=== PATIENT | female | born 1965 | race Caucasian/White ===

== ENCOUNTER 2022-02-11 10:30 | Outpatient (RCR) | payer OTHER, SELFPAY | END 2022-03-30 09:31 | disposition home or self-care (01) | PROVIDERS: Visit Provider Family Medicine | DX: M54.50 Low back pain, unspecified (principal) | CPT/HCPCS: 97110; 97140 ==

== ENCOUNTER 2022-02-28 19:50 | Outpatient (CLI) | payer OTHER, SELFPAY ==
--- NOTE | 2022-03-08 12:26 | P.SLS_ITS ---
Sleep Study Details Details Interpreting Provider: Davide Rocha MD Date of Sleep Study: 02/28/22 Sleep Study Details: STUDY TYPE:? Home ? BMI:? 37.1 ORDERING PROVIDER:? Otis INDICATION:? Concerns about sleep apnea ? SLEEP SUMMARY:? Monitor time 462.9 minutes RESPIRATORY SUMMARY:? AHI 78.8. Minimal positional variation with the exception of the left lateral position AHI was 33.8. Low oxygen 69% 43.8% of the study oxygen level was less than 90%, 19.7% of study less than 85%, and 5.9% of study less than 80%. Snore summary 813.3 PERIODIC LIMB MOVEMENTS OF SLEEP:? Not recorded CARDIAC:? Range 07/03/2041, mean 57.3 beats per minute IMPRESSION:? Severe obstructive sleep apnea with an AHI of 78.8. Somewhat improved but still severe in the left lateral position. All other positions we re similar. Severe hypoxemia noted during study RECOMMENDATION: Would recommend an in-lab titration for this patient to the significant hypoxemia noted and the severity of the sleep apnea.
== END 2022-02-28 19:51 | disposition home or self-care (01) ==
PROVIDERS: Visit Provider Physician Assistant Medical
DX: G47.33 Obstructive sleep apnea (adult) (pediatric) (principal)
CPT/HCPCS: 95806

== ENCOUNTER 2022-03-21 09:07 | Emergency (ER) | payer OTHER, SELFPAY ==
[2022-03-21] VITALS (12 sets, daily range): BP systolic 150–164; BP diastolic 82–107; PULSE 55–71; RESP 16–20; TEMP 35.7; O2SAT 96–98; BMI 37.1
--- NOTE | 2022-03-21 10:08 | ED.CHESTPAIN ---
HPI - Chest Pain General Chief Complaint: Chest Pain Stated Complaint: chest pain Time Seen by Provider: 03/21/22 09:50 History of Present Illness HPI narrative: This 56-year-old female comes in reporting intermittent chest discomfort over the past couple days. She states that she feels that in the center of her chest and sometimes radiating into her left anterior chest. The pain comes and goes and sometimes is rather brief lasting for seconds or few minutes and other times occurs for 10-20 minutes. She states that this is not an exertional pain. She does not have any prior pain with when exerting herself. She does not report any shortness of breath, lightheadedness, nausea, vomiting, or diaphoresis. She does not have any prior cardiac history. She does not have any cardiac risk factors except that she quit smoking about 3 years ago. Related Data Previous Rx's Medication Instructions Recorded ketorolac 10 mg tablet 10 mg PO Q8H 5 days #15 tabs 03/21/22 Allergies Allergy/AdvReac Type Severity Reaction Status Date / Time No Known Drug Allergies Allergy Verified 03/21/22 09:16 Review of Systems Status of ROS Reports: 10 or more systems reviewed and unremarkable except as noted in History and below Narrative Constitutional: No fevers, no weight gain or loss. Eyes: No discharge. No vision changes. HENT: No congestion, no sore throat, no ear pain. Cardiovascular: No palpitations. Chest discomfort as described above. Respiratory: No shortness of breath, no wheezes, no cough. Gastrointestinal: No abdominal pain, no vomiting, no diarrhea. Genitourinary: No dysuria, no hematuria. Musculoskeletal: Normal range of motion. Skin: No rashes, no pruritis. Neurological: No dizziness, weakness, sensory change, speech change. Endo/Heme/Allergies: No bruising or bleeding. No polydipsia. Pysch: no suicidality, no anxiety, no insomnia. All other systems reviewed and are negative. PFSH PFSH Social History Smoking Status: Former smoker Do you use any of these nicotine containing products: Vaping Products Second hand tobacco smoke exposure: No How often do you have a drink containing alcohol: 2-4 times a month How many standard drinks containing alcohol do you have on a typical day: 1 or 2 How often do you have six or more drinks on one occasion: Never AUDIT-C Alcohol total score: 2 Non-prescribed substance use: denies use service: No Exam Narrative Exam Narrative: Constitutional: Well-developed, well-nourished, no acute distress. HEENT: Normocephalic, atraumatic. Neck: Normal range of motion. Nontender. Supple. Heart: Regular. No murmurs. Normal rate. Intact distal pulses. Lungs: Clear to auscultation. No wheezes, rhonchi, or rales. Chest discomfort is distinctly reproducible when palpating on her lower sternum. Abdomen: Normal bowel sounds. Nontender. No rebound tenderness. Genitalia: Deferred. Back: No midline tenderness. Normal range of motion. Extremities: Normal range of motion. No injury. Skin: Intact. No rash. Warm. No erythema or pallor. Neurologic: No altered sensation. No weakness. Alert and oriented. Psychiatric: No suicidality. No anxiety or depression. No insomnia. Nursing notes and vitals signs are reviewed. Const Vital Signs, click to edit/add: Vital Signs - 24 hr 03/21/22 09:17 03/21/22 09:30 03/21/22 09:55 Temperature 96.3 F L Pulse Rate 68 Pulse Rate [Apical] 71 64 Respiratory Rate 20 16 Blood Pressure Blood Pressure [Left Upper Arm] 157/107 H 164/89 H Pulse Oximetry 97 98 96 Oxygen Delivery Method Room Air Room Air 03/21/22 10:00 03/21/22 10:02 03/21/22 10:04 Temperature Pulse Rate 66 64 69 Pulse Rate [Apical] Respiratory Rate Blood Pressure 150/102 H Blood Pressure [Left Upper Arm] Pulse Oximetry 97 97 97 Oxygen Delivery Method 03/21/22 10:30 03/21/22 10:32 03/21/22 10:33 Temperature Pulse Rate 70 68 65 Pulse Rate [Apical] Respiratory Rate Blood Pressure 152/82 H Blood Pressure [Left Upper Arm] Pulse Oximetry 96 97 96 Oxygen Delivery Method 03/21/22 11:00 03/21/22 11:01 Temperature Pulse Rate 55 L 62 Pulse Rate [Apical] Respiratory Rate Blood Pressure 162/82 H Blood Pressure [Left Upper Arm] Pulse Oximetry 96 98 Oxygen Delivery Method Course Vital Signs Vital signs: Initial Vital Signs Temperature 96.3 F L 03/21/22 09:17 Temperature Source Temporal Artery Scan 03/21/22 09:17 Pulse Rate 71 03/21/22 09:17 Pulse Rhythm 03/21/22 09:17 Respiratory Rate 20 03/21/22 09:17 Blood Pressure 157/107 H 03/21/22 09:17 Blood Pressure Mean 123 03/21/22 09:17 Pulse Oximetry 97 03/21/22 09:17 Oxygen Delivery Method 03/21/22 09:17 Vital Signs Temperature 96.3 F L 03/21/22 09:17 Pulse Rate 71 03/21/22 09:17 Respiratory Rate 20 03/21/22 09:17 Blood Pressure 157/107 H 03/21/22 09:17 Pulse Oximetry 97 03/21/22 09:17 Oxygen Delivery Method 03/21/22 09:17 Temperature 96.3 F L 03/21/22 09:17 Pulse Rate 62 03/21/22 11:01 Respiratory Rate 16 03/21/22 09:30 Blood Pressure 162/82 H 03/21/22 11:01 Pulse Oximetry 98 03/21/22 11:01 Oxygen Delivery Method 03/21/22 09:30 MDM - Chest Pain MDM Narrative Medical decision making narrative: This patient arrives with a couple days of intermittent chest discomfort in her sternum area and sometimes radiating off the left side. This pain is distinctly reproducible when palpating over the lower portion of her sternum. Additionally her EKG and lab results returned with normal findings. Her symptoms are much more likely related to a chest wall pain or costal chondritis. She did receive a rib belt and a prescription for Toradol. She is okay to return home and resume activity as tolerated. Lab Data Labs: Lab Results 03/21/22 03/21/22 03/21/22 Range/Units 10:08 10:21 10:21 WBC 6.53 (4.50-11.00) K/uL RBC 4.46 (4.00-5.20) m/uL Hgb 13.1 (12.0-16.0) gm/dL Hct 40.2 (33.0-51.0) % MCV 90 (80-100) fL MCH 29 (26-34) pg MCHC 33 (32-36) gm/dL RDW Coeff of Gianni 12.5 (11.5-15.5) % Plt Count 279 (140-440) K/uL Neut % (Auto) 58.4 (42.0-72.0) % Lymph % (Auto) 32.2 (20-44) % [place] % (Auto) 6.3 (0.0-11.0) % Eos % (Auto) 2.0 (0.0-7.0) % Baso % (Auto) 0.8 (0.0-3.0) % Neut # (Auto) 3.82 (1.7-7.0) K/uL Lymph # (Auto) 2.10 (0.90-2.90) K/uL [place] # (Auto) 0.40 (0.00-0.90) K/UL Eos # (Auto) 0.13 (0.00-0.50) K/uL Baso # (Auto) 0.05 (0.00-0.30) K/uL Abs Immat Gran (auto) 0.02 (0.00-0.30) K/uL Sodium 140 (135-149) mmol/L Potassium 3.8 (3.6-5.1) mmol/L Chloride 103 (96-114) mmol/L Carbon Dioxide 27 (20-32) mmol/L BUN 14 (7-30) mg/dL Creatinine 0.7 (0.5-1.5) mg/dL Estimated Creat Clear 84.01 Estimated GFR 101 ml/min Glucose 100 (60-115) mg/dL Calcium 8.8 (8.4-10.6) mg/dL POC Troponin I 0.01 (0.01-0.04) ng/ml ECG Data Attestation: I personally reviewed and interpreted this ECG as follows: Interpretation: Normal sinus rhythm. Rate is 68 beats per minute. There are no specific ST or T-wave abnormalities. Discharge Plan Discharge Clinical Impression: Chest wall pain Patient Disposition: Home, Self-Care Condition: Stable Instructions: Chest Wall Pain (ED) Additional Instructions: Use rib belt and medications as needed and indicated. Follow up with MD or return if worsening. Prescriptions: New ketorolac 10 mg tablet 10 mg PO Q8H 5 Days Qty: 15 0RF Follow Up/Referrals: Provider,Not a Local [Primary Care Provider] - Stand Alone Forms: DeRev Info Instructions
[2022-03-21 10:36] LABS: Troponin, Point-of-Care* 0.01 ng/ml (0.01-0.04)
[2022-03-21 10:36] LABS: Basophils Absolute Auto 0.05 K/uL (0.00-0.30); Basophils Percent Auto 0.8 % (0.0-3.0); Eosinophils Absolute Auto 0.13 K/uL (0.00-0.50); Hematocrit 40.2 % (33.0-51.0); Hemoglobin* 13.1 gm/dL (12.0-16.0); Immature Granulocytes Abs Auto 0.02 K/uL (0.00-0.30); Lymphocytes Percent Auto 32.2 % (20-44); Mean Corpuscular HGB Conc 33 gm/dL (32-36); Mean Corpuscular Hemoglobin 29 pg (26-34); Mean Corpuscular Volume 90 fL (80-100); Monocytes Percent Auto 6.3 % (0.0-11.0); Neutrophils Absolute Auto 3.82 K/uL (1.7-7.0); Neutrophils Percent Auto 58.4 % (42.0-72.0); Platelet Count* 279 K/uL (140-440); RDW Coefficient of Variation % 12.5 % (11.5-15.5); Red Blood Count 4.46 m/uL (4.00-5.20); White Blood Count* 6.53 K/uL (4.50-11.00)
[2022-03-21 10:39] LABS: Slide Review Reflex No
[2022-03-21 10:45] LABS: Chloride* 103 mmol/L (96-114); Potassium* 3.8 mmol/L (3.6-5.1); Sodium* 140 mmol/L (135-149)
[2022-03-21 10:48] LABS: Blood Urea Nitrogen* 14 mg/dL (7-30); Carbon Dioxide* 27 mmol/L (20-32); Creatinine* 0.7 mg/dL (0.5-1.5); Est. Creatinine Clearance* 84.01; Estimated Glomerular Filt Rate 101 ml/min
[2022-03-21 10:49] LABS: Calcium* 8.8 mg/dL (8.4-10.6); Glucose* 100 mg/dL (60-115)
--- NOTE | 2022-03-21 11:03 | ED.NURSE ---
Pt HR noted to be dropping down to low 50's/high 40's several times. Pt awake and not sleeping. MD notified.
--- NOTE | 2022-03-21 11:33 | ED.NURSE ---
Rib belt provided to pt by
== END 2022-03-21 11:34 | disposition home or self-care (01) ==
PROVIDERS: Emergency Provider Emergency Medicine Emergency Medical Services
DX: R07.89 Other chest pain (principal)
CPT/HCPCS: 36415; 80048; 84484; 85025; 93005; 99284

== ENCOUNTER 2022-09-06 10:15 | Outpatient (RCR) | payer OTHER, SELFPAY | END 2023-01-19 23:59 | disposition home or self-care (01) | PROVIDERS: PCP Physician Assistant Surgical; Visit Provider Physician Assistant Surgical | DX: S82.409A Unspecified fracture of shaft of unspecified fibula, initial encounter for closed fracture (principal); R26.89 Other abnormalities of gait and mobility; M25.572 Pain in left ankle and joints of left foot; Z51.89 Encounter for other specified aftercare | CPT/HCPCS: 97110; 97140; 97162 ==

== ENCOUNTER 2022-12-16 12:47 | Outpatient (CLI) | payer OTHER, SELFPAY ==
--- NOTE | 2022-12-16 13:00 | CRLHL7_ITS ---
For Patients: As a result of the Century Cures Act, medical imaging exams and procedure reports are released immediately into your electronic medical record. You may view this report before your referring provider. If you have questions, please contact your health care provider. BILATERAL SCREENING MAMMOGRAM WITH COMPUTER-AIDED DETECTION AND TOMOSYNTHESIS TECHNIQUE: CC and MLO views were obtained. These mammographic images have been obtained using full-field digital technique. These mammographic images were interpreted with the benefit of computer-aided detection. Breast Tomosynthesis was used in this interpretation. COMPARISON FILM: 12/10/21, 05/08/20, 08/23/11. FINDINGS: There are scattered areas of fibroglandular density IMPRESSION: There is no radiographic evidence for malignancy. ASSESSMENT: BI-RADS Category 1: Negative RECOMMENDATION: Routine screening mammogram in 1 year. A lay language report of this examination will be provided to the patient. Yoel Lucia M.D. Diagnostic/Nuclear Medicine Radiologist [email or web address] RISHI/Dictated by: Yoel Lucia MD @ 12/19/2022 8:07:00 AM (Electronically Signed)
== END 2022-12-16 12:48 | disposition home or self-care (01) ==
LOC: MAMMO 12:48
PROVIDERS: PCP Physician Assistant Surgical; Referring Provider Physician Assistant Surgical; Visit Provider Physician Assistant Surgical
DX: Z12.31 Encounter for screening mammogram for malignant neoplasm of breast (principal)
CPT/HCPCS: 77063; 77067

== ENCOUNTER 2023-01-26 12:55 | Outpatient (CLI) | payer OTHER, SELFPAY | END 2023-01-26 12:56 | disposition home or self-care (01) | LOC: NFLDREF 01-28 08:25 | PROVIDERS: PCP Physician Assistant Surgical; Referring Provider Physician Assistant Surgical; Visit Provider Physician Assistant Medical | DX: Z00.00 Encounter for general adult medical examination without abnormal findings (principal); E66.9 Obesity, unspecified; Z13.29 Encounter for screening for other suspected endocrine disorder; Z13.6 Encounter for screening for cardiovascular disorders; Z80.0 Family history of malignant neoplasm of digestive organs | CPT/HCPCS: 80053; 80061; 84443; 86301 ==

== ENCOUNTER 2023-12-15 07:36 | Outpatient (CLI) | payer OTHER, SELFPAY ==
--- NOTE | 2023-12-15 09:10 | W.ANESCHARGE ---
Anesthesia Charges Start Date/Time Anesthesia Start Date: 12/15/23 Anesthesia Start Time: 08:33 Stop Date/Time Anesthesia Stop Date: 12/15/23 Anesthesia Stop Time: 09:14
--- NOTE | 2023-12-15 09:21 | W.ANESCHARGE ---
Anesthesia Charges Start Date/Time Anesthesia Start Date: 12/15/23 Anesthesia Start Time: 08:33 Stop Date/Time Anesthesia Stop Date: 12/15/23 Anesthesia Stop Time: 09:14
== END 2023-12-15 07:37 | disposition home or self-care (01) ==
LOC: OP CLINIC 07:37
PROVIDERS: PCP Physician Assistant Surgical; Visit Provider Internal Medicine
DX: Z12.11 Encounter for screening for malignant neoplasm of colon (principal); K63.5 Polyp of colon
CPT/HCPCS: 00811; 45380; 88305; J2405; J2704

== ENCOUNTER 2024-02-14 14:49 | Outpatient (CLI) | payer OTHER, SELFPAY ==
--- NOTE | 2024-02-14 15:20 | CRLHL7_ITS ---
For Patients: As a result of the Century Cures Act, medical imaging exams and procedure reports are released immediately into your electronic medical record. You may view this report before your referring provider. If you have questions, please contact your health care provider. BILATERAL SCREENING MAMMOGRAM WITH COMPUTER-AIDED DETECTION AND TOMOSYNTHESIS TECHNIQUE: CC and MLO views were obtained. These mammographic images have been obtained using full-field digital technique. These mammographic images were interpreted with the benefit of computer-aided detection. Breast Tomosynthesis was used in this interpretation. COMPARISON FILM: 12/16/22. FINDINGS: There are scattered areas of fibroglandular density IMPRESSION: There is no radiographic evidence for malignancy. ASSESSMENT: BI-RADS Category 1: Negative RECOMMENDATION: Routine screening mammogram in 1 year. A lay language report of this examination will be provided to the patient. Savage Mercer M.D. Diagnostic Radiologist [email or web address] ADEN/rita Transcribed: 6:31 p.[email or web address] [place]/Dictated by: Savage Mercer MD @ 02/15/2024 11:31:00 AM (Electronically Signed)
== END 2024-02-14 14:50 | disposition home or self-care (01) ==
LOC: MAMMO 14:50
PROVIDERS: PCP Family Medicine; Visit Provider Family Medicine
DX: Z12.31 Encounter for screening mammogram for malignant neoplasm of breast (principal)
CPT/HCPCS: 77063; 77067

== ENCOUNTER 2024-03-28 09:38 | Outpatient (CLI) | payer OTHER, SELFPAY | END 2024-03-28 09:39 | disposition home or self-care (01) | PROVIDERS: PCP Family Medicine; Visit Provider Family Medicine | DX: R73.03 Prediabetes (principal); Z11.59 Encounter for screening for other viral diseases; Z13.220 Encounter for screening for lipoid disorders | CPT/HCPCS: 80053; 80061; 86803 ==

== ENCOUNTER 2024-05-07 07:48 | Outpatient (CLI) | payer OTHER, SELFPAY ==
--- NOTE | 2024-05-07 08:00 | CRLHL7_ITS ---
For Patients: As a result of the Century Cures Act, medical imaging exams and procedure reports are released immediately into your electronic medical record. You may view this report before your referring provider. If you have questions, please contact your health care provider. Indication Lung cancer screening. TECHNIQUE: Noncontrast CT images of the chest. COMPARISON: None. FINDINGS: Calcified granuloma right lung. No focal consolidation, pleural effusion, or pneumothorax. Solid 3 mm nodule left upper lobe (series 3 image 58). Heart size normal. No pericardial effusion. Coronary artery atherosclerotic calcifications. No mediastinal or hilar lymphadenopathy. Hypoattenuating, peripherally calcified lesion within the superior mediastinum measuring 2.3 cm. Limited images through the upper abdomen are unremarkable. Mild thoracic spondylosis. No aggressive osseous lesions. IMPRESSION: 1. Small left upper lobe pulmonary nodule. Lung rads category 2, benign. Continue annual screening with low-dose chest CT in 12 months. 2. Hypoattenuating nodule demonstrating peripheral calcification in the superior mediastinum is indeterminate, though may represent an exophytic thyroid nodule. Thyroid ultrasound is recommended for further evaluation. Please note that all CT scans at this facility use dose modulation, iterative reconstruction, and/or weight-based dosing when appropriate to reduce radiation dose to as low as reasonably achievable. Dictated by Pa Rosa MD @ 05/07/2024 10:04:30 AM (Electronically Signed)
--- NOTE | 2024-05-07 09:00 | CRLHL7_ITS ---
For Patients: As a result of the Century Cures Act, medical imaging exams and procedure reports are released immediately into your electronic medical record. You may view this report before your referring provider. If you have questions, please contact your health care provider. INDICATION: Nicotine dependency. COMPARISON: CT of the abdomen and pelvis from 10/09/2013. TECHNIQUE: Ultrasound examination of the abdominal aorta was performed. FINDINGS: There is a short segment of mild aneurysmal dilatation of the suprarenal mid abdominal aorta, with AP diameter of 3.2 centimeters, measuring 3.2 centimeters in length. Suggest follow-up ultrasound of the abdominal aorta at 3 year intervals. The rest of the abdominal aorta is normal in caliber with no sign of additional aneurysmal dilatation. Visualization of the aortic bifurcation was performed and this is normal. IMPRESSION: 1. New mild aneurysmal dilatation of the suprarenal mid abdominal aorta at 3.2 centimeters. 2. Recommend follow-up ultrasound at 3 year intervals. Dictated by Sebastian Lawton MD @ 05/07/2024 10:54:12 AM (Electronically Signed)
== END 2024-05-07 07:49 | disposition home or self-care (01) ==
PROVIDERS: PCP Family Medicine; Visit Provider Family Medicine
DX: Z12.2 Encounter for screening for malignant neoplasm of respiratory organs (principal); R91.8 Other nonspecific abnormal finding of lung field; E04.1 Nontoxic single thyroid nodule; I71.40 Abdominal aortic aneurysm, without rupture, unspecified; Z87.891 Personal history of nicotine dependence
CPT/HCPCS: 71271; 76706

== ENCOUNTER 2024-05-14 15:39 | Outpatient (CLI) | payer OTHER, SELFPAY ==
--- NOTE | 2024-05-14 16:00 | CRLHL7_ITS ---
For Patients: As a result of the Cures Act, medical imaging exams and procedure reports are released immediately into your electronic medical record. You may view this report before your referring provider. If you have questions, please contact your health care provider. INDICATION: Follow-up thyroid nodule COMPARISON: 10/21/2016 FINDINGS: Ultrasound examination of the thyroid gland was performed with a high-resolution linear transducer. There is stable appearance of the nodule in the interpolar left lobe, now measuring 1.6 x 0.7 x 0.7 centimeters, 1.4 x 0.8 x 0.8 centimeters previously. It is mixed solid and cystic, isoechoic, wider than tall with smooth margins and stable microcalcifications. This has a TI-RADS score of TR 3, mildly suspicious. Since it has been stable for 7 years, no further follow-up is indicated radiographically. There is no sign of any nodule in the right lobe. The right lobe measures 5.5 x 1.2 x 1.5 cm and the left lobe measures 5.3 x 1.5 x 2.0 cm. IMPRESSION: 1. Stable nodule in the interpolar left lobe, now measuring 1.6 x 0.7 x 0.7 centimeters, 1.4 x 0.8 x 0.8 centimeters previously. TI-RADS score of TR 3, mildly suspicious. Since it has been stable for 7 years, no further follow-up is indicated radiographically. 2. No other abnormality seen in the thyroid. . Dictated by Sebastian Lawton MD @ 05/15/2024 9:37:00 AM (Electronically Signed)
== END 2024-05-14 15:40 | disposition home or self-care (01) ==
LOC: US 15:40
PROVIDERS: PCP Family Medicine; Visit Provider Family Medicine
DX: E04.1 Nontoxic single thyroid nodule (principal)
CPT/HCPCS: 76536

== ENCOUNTER 2025-02-21 09:52 | Outpatient (CLI) | payer OTHER, SELFPAY ==
--- NOTE | 2025-02-21 10:15 | CRLHL7_ITS ---
For Patients: As a result of the Century Cures Act, medical imaging exams and procedure reports are released immediately into your electronic medical record. You may view this report before your referring provider. If you have questions, please contact your health care provider. INDICATION: BILATERAL SCREENING MAMMOGRAM, ASYMPTOMATIC 59 Y/O FEMALE COMPARISON: 02/14/2024, 12/16/2022, 12/10/2021 TECHNIQUE: Digital mammogram in CC and MLO projections including computer-aided detection (CAD) and tomosynthesis. BREAST COMPOSITION: There are scattered areas of fibroglandular density. FINDINGS: No suspicious findings. ASSESSMENT: BI-RADS 2 Benign RECOMMENDATION: Annual screening mammogram. A lay language report of this examination will be provided to the patient. Dictated by: Savage Mercer MD @ 02/24/2025 12:34:42 (Electronically Signed)
== END 2025-02-21 09:53 | disposition home or self-care (01) ==
LOC: MAMMO 09:52
PROVIDERS: PCP Family Medicine; Visit Provider Family Medicine
DX: Z12.31 Encounter for screening mammogram for malignant neoplasm of breast (principal)
CPT/HCPCS: 77063; 77067

== ENCOUNTER 2025-05-09 13:50 | Outpatient (CLI) | payer OTHER, SELFPAY ==
--- NOTE | 2025-05-09 14:00 | CRLHL7_ITS ---
For Patients: As a result of the Cures Act, medical imaging exams and procedure reports are released immediately into your electronic medical record. You may view this report before your referring provider. If you have questions, please contact your health care provider. INDICATION: Lung cancer screening. History of smoking. TECHNIQUE: Low-dose lung cancer screening non-contrast CT chest. Dose reduction techniques were used. COMPARISON: 05/07/2024 FINDINGS: NODULES: Stable calcified nodule within the right upper lobe. Unchanged tiny nodule within the left upper lobe, 37. Also small unchanged nodule in the right perihilar lung, 46. Tiny nodule within the right lower lobe is unchanged, 65. Small subpleural nodule right lower lobe, 80. LUNGS AND PLEURA: Emphysema. No infiltrate. MEDIASTINUM: Stable peripherally calcified nodular area inferior to the thyroid. No adenopathy. CORONARY ARTERY CALCIFICATION: Mild. LIMITED UPPER ABDOMEN: Unremarkable. MUSCULOSKELETAL: No fracture. IMPRESSION: Negative for lung cancer screening purposes. LUNG-RADS CATEGORY: 2: Benign. RADIOLOGIST RECOMMENDATION: Continue annual screening, if eligible, with low-dose CT chest in 12 months. Please note that all CT scans at this facility use dose modulation, iterative reconstruction, and/or weight-based dosing when appropriate to reduce radiation dose to as low as reasonably achievable. Dictated by Savage Mercer MD @ 05/09/2025 2:47:04 PM (Electronically Signed)
== END 2025-05-09 13:51 | disposition home or self-care (01) ==
PROVIDERS: PCP Family Medicine; Visit Provider Family Medicine
DX: Z12.2 Encounter for screening for malignant neoplasm of respiratory organs (principal); Z87.891 Personal history of nicotine dependence
CPT/HCPCS: 71271